=== PATIENT | male | born 1990 | race African-American/Black ===

== ENCOUNTER 2023-04-29 22:44 | Emergency (ER) | payer OTHER, SELFPAY ==
[2023-04-29 22:58] VITALS: BP 154/96
--- NOTE | 2023-04-29 23:21 | ED.GENMED ---
History of Present Illness
General
Chief Complaint: Musculo-Skeletal Complaint
Source: patient
Exam Limitations: none
Time Seen by Provider: 04/29/23 23:11
Nursing documentation reviewed up to this point in time: agreed with
Travel History
Have you had any contact with someone who has COVID-19?: No
Do you have any symptoms of coronavirus? Fever > 100 degrees, chills, cough, shortness of breath, sore throat, loss of taste or smell, muscle aches, or headache?: No
History of Present Illness
History of Present Illness:
32-year-old male without significant past medical history presenting to the emergency department today with concerns of right lower extremity discomfort after playing basketball 4 days ago. Claims that he felt a pop in the calf as well as bruising
and discomfort since. Swelling now into the ankle. Denies any chest pain shortness of breath a history of blood clots numbness or weakness.
Review of Systems
Review of Systems
Allergies reviewed?: Yes
All Other Systems: ROS reviewed and negative except as documented in HPI and ROS
Phy Exam
Physical Exam
Physical Exam:
GENERAL: Alert , in no apparent distress
EYE: pupils equal and reactive
NECK: Supple, no significant adenopathy.
ENT: o/p clr, mmm.
CARDIAC: Regular rate and rhythm .
LUNGS: Clear breath sounds bilaterally, no acute respiratory distress, no wheezes/rales/rhonchi
ABDOMEN: Soft, without focal tenderness, no r/g, no cvat
NEUROLOGICAL: Alert and oriented, no focal neuro deficits
SKIN: Warm and dry, skin intact.
MUSCULOSKELETAL: Bruising to the right calf tenderness to palpation when squeezing the gastroc. Intact Achilles normal Forrest test otherwise no joint laxity no significant swelling to the knee joint itself., well perfused.
PSYCH: Normal and appropriate interaction.
Course
Orders/Labs/Results
Orders:
Orders
04/29/23 23:24
Hardik Wrap Right-Treatment ONCE
Crutches-Treatment ONCE
04/30/23 00:01
CR Knee- Right 4 Or More View* Urgent
Reason For Exam: right knee pain
Vital Signs
Initial and Last Documented VS:
Initial Vital Signs
Temp Pulse Resp BP Pulse Ox
97.8 F 70 17 154/96 98
04/29/23 22:58 04/29/23 22:58 04/29/23 22:58 04/29/23 22:58 04/29/23 22:58
Last Documented Vital Signs
Temp Pulse Resp BP Pulse Ox
97.8 F 67 15 145/91 100
04/29/23 22:58 04/30/23 00:49 04/30/23 00:49 04/30/23 00:49 04/30/23 00:49
MDM/Problems Addressed
MDM/Problems Addressed:
32-year-old male presenting to the emergency department today with concerns of right-sided calf discomfort over the past few days. Has been able to walk but has had discomfort when doing so. Denies numbness weakness or additional concerns. On
evaluation does have swelling discomfort directly to the gastrocnemius. Otherwise knee examination with good range of motion to the knee and ankle no redness or warmth. Does not appear to be consistent with blood clot concerning this was an acute
injury and specifically has findings consistent with gastroc tear. Plan for symptomatic treatment and orthopedic follow-up as needed. Return precautions given.
*Critical Care Note
Total Time (30-74mins, 75-104mins- exclusive of procedures): Not Applicable
ED Attending Note
-
Portions of this chart may have been created with voice recognition software.� Occasional wrong word or��sound alike� substitutions may have occurred due to the inherent limitations of voice recognition software.
Discharge Plan
Departure
Patient Disposition: Home (Routine Discharge)
Date of Disposition: 04/30/23
Time of Disposition: 00:21
Patient with high blood pressure during this ER visit?: No
Condition: Good
Covid-19: Not Applicable
Discharge Problem:
Strain of calf muscle
Instructions: Muscle Strain (DC)
Referrals:
Ab Horton MD [Active] - Follow up in 10 days
UNKNOWN - PT DOES,NOT KNOW [Family Provider] -
Interventions
Interventions:
*Risk Screen - Suicide Last Done: 04/29/23 22:58
*General Assessment Last Done: 04/29/23 22:58
*Neglect/Abuse Screening Last Done: 04/29/23 22:58
ED- Fall Risk Assessment Last Done: 04/29/23 22:58
*ED COVID-19 Vaccine History Last Done: 04/29/23 22:58
*Nursing Disposition Last Done: 04/30/23 00:49
ED-Musculoskeletal Assessment Last Done: 04/29/23 23:12
Discharge Date and Time
Discharge Date/Time: 04/30/23 00:51
[2023-04-29 23:45] VITALS: BMI 32.6
[2023-04-30 00:49] VITALS: BP 145/91
== END 2023-04-30 00:51 | disposition home or self-care (01) ==
LOC: EMR 22:44
PROVIDERS: EMERGENCY PHYSICIAN Student in an Organized Health Care Education/Training Program
DX: S86.811A Strain of other muscle(s) and tendon(s) at lower leg level, right leg, initial encounter (principal); M25.471 Effusion, right ankle; X58.XXXA Exposure to other specified factors, initial encounter; Y93.67 Activity, basketball
CPT/HCPCS: 99283; 73564